=== PATIENT | female | born 1975 | race Caucasian/White ===

== ENCOUNTER 2018-09-04 04:44 | Day surgery (SDC) | payer OTHER ==
[2018-09-01 08:29] VITALS: BMI 33.5
--- NOTE | 2018-09-04 07:57 | HP ---
Admitting History and Physical - Admission History of Present Illness: 42 yo with hx/o progressively worsening menorrhaiga over the past 9 years She underwent a ultrasound that revealed an endometrial polyp and submucosal fibroid She desires surgical removal History Source: Patient Limitations to Obtaining History: No Limitations - Past Medical History Cardiovascular: No: HTN Pulmonary: No: Asthma Gastrointestinal: No: GERD ...LMP: 08/24/18 ...: No Heme/Onc: No: Anemia - Past Surgical History Additional Past Surgical History: BTL TOP s/p D&C Gallbladder D&C for polyp/fibroid - Smoking History Smoking history: Never smoked - Alcohol/Substance Use Hx Alcohol Use: No History of Substance Use: reports: None - Social History Usual Living Arrangement: Yes: Alone History of Recent Travel: No Home Medications - Allergies Allergies/Adverse Reactions: Allergies Allergy/AdvReac Type Severity Reaction Status Date / Time No Known Allergies Allergy Verified 09/01/18 08:29 - Home Medications Home Medications: Ambulatory Orders Multivitamin [One-Daily Multi-Vitamin] 1 each PO DAILY 09/01/18 Family Disease History - Family Disease History Family History: Denies Review of Systems - Review of Systems Constitutional: reports: No Symptoms Neck: reports: No Symptoms Cardiovascular: reports: No Symptoms Respiratory: reports: No Symptoms Gastrointestinal: reports: No Symptoms Genitourinary: reports: No Symptoms Musculoskeletal: reports: No Symptoms Integumentary: reports: No Symptoms Endocrine: reports: No Symptoms Psychiatric: reports: No Symptoms Physical Examination Constitutional: Yes: Well Nourished, No Distress, Calm Cardiovascular: Yes: Regular Rate and Rhythm Respiratory: Yes: Regular, CTA Bilaterally Gastrointestinal: Yes: Normal Bowel Sounds, Soft ...Rectal Exam: Yes: WNL Renal/: Yes: WNL Edema: No Neurological: Yes: WNL Psychiatric: Yes: Alert, Oriented Imaging - Results Ultrasound: Report Reviewed, Image Reviewed Assessment/Plan 42 yo with menorrhagia, sonogram findings suspicous for submucosal fibroid, for hysterscopy, D&C, myomectomy 1. Consents reviewed and signed 2. Preop labs reviewed 3. SCDs for DVT prophylaxis 4. Will proceed to OR
[2018-09-04] MEDS ORDERED: ONDANSETRON 4 MG/2 ML VIAL IVPUSH PRN (09:06)
[2018-09-04] MEDS ORDERED: oxyCODONE HCL 5 MG TABLET PO PRN (09:06)
[2018-09-04] MEDS ORDERED: LACTATED RINGERS SOLUTION 1,000 ML IV SCH (09:15)
[2018-09-04] MEDS ORDERED: MIDAZOLAM HCL 2 MG/2 ML SINGLE DOSE VIAL ONE (09:20)
[2018-09-04] MEDS ORDERED: KETOROLAC TROMETHAMINE 30 MG/1 ML VIAL ONE (09:20)
[2018-09-04] MEDS ORDERED: LIDOCAINE HCL/PF 2% SDV 5ML VIAL ONE (09:20)
[2018-09-04] MEDS ORDERED: PROPOFOL 20 ML ONE ×2 (09:20)
[2018-09-04] MEDS ORDERED: ceFAZolin SODIUM 1 GM VIAL ONE (09:40)
[2018-09-04] MEDS ORDERED: ceFAZolin SODIUM 1 GM VIAL IVPB ONE (09:42)
--- NOTE | 2018-09-04 10:24 | OP ---
Operative Note - Note: Operative Date: 09/04/18 Pre-Operative Diagnosis: endometrial polyp, submucosal fibroid Operation: hysteroscopic polypectomy, dilation and curettage Findings: endometrial polyp Post-Operative Diagnosis: Same as Pre-op Surgeon: Christy Quach Anesthesiologist/MISSILE [employer] REPAIRER: Lexi Ceballos Anesthesia: General Estimated Blood Loss (mls): 5 Fluid Volume Replaced (mls): 400 Operative Report Dictated: Yes
[2018-09-04] MEDS ORDERED: oxyCODONE HCL 5 MG TABLET PO ONE (12:10)
[2018-09-04] MEDS ORDERED: oxyCODONE HCL 5 MG TABLET ONE (12:17)
[2018-09-04 14:00] VITALS: BP 103/57; PULSE 57; TEMP 98.6
--- NOTE | 2018-09-04 21:23 | OP ---
DATE OF OPERATION: 09/04/2018 ATTENDING PHYSICIAN: Christy Quach MD PREOPERATIVE DIAGNOSIS: Endometrial polyp, submucosal fibroid. POSTOPERATIVE DIAGNOSIS: Endometrial polyp, submucosal fibroid. SURGERY: Hysteroscopic resection of endometrial polyp and dilation and curettage. SURGEON: Christy Quach MD ANESTHESIA: Dr. Ceballos, general anesthesia. INDICATIONS: The patient is a 42-year-old with a history of menorrhagia who underwent ultrasound. It revealed findings suspicious for enlargement polyp and submucosal fibroid. She was counseled regarding medical and surgical management or observation. She has opted for surgical intervention. She was counseled regarding risks, benefits, alternatives, and complications of the procedure including infection, bleeding, damage to surrounding organs, uterine perforation. She expressed understanding and was brought to the operating room. DESCRIPTION OF PROCEDURE: When the patient's anesthesia was found to be adequate, the patient was prepped and draped in the normal sterile fashion and placed in the dorsal supine position using French stirrups. A weighted speculum was placed in the patient's vagina. Anterior vagina was retracted using a De Santiago retractor. The anterior lip of the cervix was grasped using an Allis clamp. The cervix was gently dilated to accommodate a size 21 Hegar dilator. A Symphion hysteroscope was placed into the endometrial cavity. Pathology was noted as above. The Symphion device was deployed, and resection of the endometrial polyps were done. All instruments were removed from the patient's uterus. Gentle sharp curetting was performed. All specimens were sent to Pathology. The patient was awoken from anesthesia, brought to the recovery room in stable condition. Melissa [id number]
--- NOTE | 2018-09-05 17:53 | PATH ---
Surgical Pathology Report Patient Name: LUIS MANUEL COLLADO [facility]. Rec. #: [id number] /Age/Gender: 1975 (Age: 42) / F Account: [id number] Location: [facility] SURGICAL Taken: 09/04/2018 Received: 09/04/2018 Reported: 09/05/2018 Physicians: Christy Quach Specimen(s) Received ENDOMETRIAL CURETTINGS Clinical History Endometrial polyp Final Diagnosis ENDOMETRIAL CURETTINGS, POLYPECTOMY, DILATION AND CURETTAGE: FRAGMENTS OF ENDOMETRIAL POLYP, SMOOTH MUSCLE FRAGMENTS SUGGESTIVE OF SUBMUCOSAL LEIOMYOMA, AND SCANT BENIGN ENDOCERVICAL TISSUE. Electronically Signed Tanna Yu M.D. Gross Description Received in formalin labeled "endometrial curettings," is a 3.3 x 2.5 x 0.3 cm aggregate of mesa soft tissue fragments. The formalin is filtered and the specimen is entirely submitted in 3 cassettes. /09/04/2018 saudi09/04/2018
== END 2018-09-04 12:50 | disposition home or self-care (01) ==
LOC: JASU-SURG 04:44
PROVIDERS: ATTEND Obstetrics & Gynecology
PROC: 0UJD8ZZ Inspection of Uterus and Cervix, Via Natural or Artificial Opening Endoscopic (ICD-10-PCS; 2018-09-04)
PROC: 0UB97ZX Excision of Uterus, Via Natural or Artificial Opening, Diagnostic (ICD-10-PCS; principal; 2018-09-04 09:00)
PROC: 0UDB7ZX Extraction of Endometrium, Via Natural or Artificial Opening, Diagnostic (ICD-10-PCS; 2018-09-04 09:00)
DX: N84.0 Polyp of corpus uteri (principal); D25.0 Submucous leiomyoma of uterus
CPT/HCPCS: 36415; 84702; 86850; 86900; 86901; 88305-TC; 94760